=== PATIENT | female | born 1995 | race Hispanic/Latino ===

== ENCOUNTER 2018-02-10 09:27 | Inpatient (IN) | payer OTHER ==
[2018-02-10] MEDS ORDERED: LACTATED RINGERS 1000ML 1,000 ML IV PRN (09:59)
[2018-02-10 10:40] LABS: BASOPHILS % (AUTO) 0.6 % (0.0-5.0); EOSINOPHILS % (AUTO) 0.6 % (0.0-8.0); HEMATOCRIT 30.9 % (36-48); MEAN CORPUSCULAR HGB CONC 33.1 g/dL (32.0-36.0); MEAN CORPUSCULAR VOLUME 78.5 fL (79-99); MONOCYTES % (AUTO) 7.3 % (3.0-13.0); NEUTROPHILS % (AUTO) 62.5 % (40.0-77.0); NUCLEATED RED BLOOD CELLS 0.1 % (0.0-0.19); PLATELET COUNT (AUTO) 199 K/uL (130-400); RED BLOOD CELL COUNT(AUTO) 3.93 MIL/uL (4.00-5.50); RED CELL DISTRIBUTION WIDTH 17.5 % (11.0-15.5)
[2018-02-10 10:53] LABS: CREATININE 0.7 mg/dL (0.5-1.5); POTASSIUM 3.8 mmol/L (3.5-5.1)
[2018-02-10 10:55] LABS: INR 0.88 (0.85-1.15); PARTIAL THROMBOPLASTIN TIME 29.2 SEC (26.3-35.5); PROTHROMBIN TIME 9.3 SEC (9.6-11.6)
[2018-02-10 10:57] LABS: ALBUMIN 2.3 g/dL (3.5-5.0); BILIRUBIN,TOTAL 0.3 mg/dL (0.2-1.0); TOTAL PROTEIN, SERUM 6.4 g/dL (6.0-8.3); URIC ACID 5.4 mg/dL (2.6-7.2)
[2018-02-10 11:06] LABS: APPEARANCE,URINE CLEAR (CLEAR); BILIRUBIN,URINE NEGATIVE (NEGATIVE); COLOR,URINE YELLOW (YELLOW); GLUCOSE, URINE (UA) NEGATIVE (NEGATIVE); KETONES,URINE NEGATIVE (NEGATIVE); LEUKOCYTE ESTERASE ,URINE NEGATIVE (NEGATIVE); NITRATE,URINE NEGATIVE (NEGATIVE); OCCULT BLOOD,URINE SMALL (NEGATIVE); PH,URINE 7.5 (5.0-8.0); PROTEIN,URINE 100 (NEGATIVE); UROBILINOGEN,URINE 0.2 mg/dL (0.2-1.0)
[2018-02-10 11:12] LABS: BACTERIA,URINE Rare /HPF (None Seen); SQUAMOUS EPITHELIAL CELL,UR Moderate /HPF (0-2); WBC,URINE 0-1 /HPF (0-1)
[2018-02-11] MEDS ORDERED: OXYTOCIN 10 USP UNITS/ML 20 UNIT in LACTATED RINGERS 1000ML 1,000 ML IV SCH (06:00)
[2018-02-11] MEDS ORDERED: LACTATED RINGERS 1000ML 1,000 ML IV ONE (06:40)
[2018-02-11] MEDS ORDERED: OXYTOCIN 10 USP UNITS/ML ONE ×2 (07:14→17:27)
[2018-02-11] MEDS: AMPICILLIN 1GM+NS 50ML 50 ML IV SCH (08:15)
[2018-02-11] MEDS ORDERED: AMPICILLIN 2GM+NS 100ML 100 ML IV SCH (08:15)
[2018-02-11 08:25] LABS: HEPATITIS Bs ANTIGEN SCREEN P Negative (Negative)
[2018-02-11] MEDS ORDERED: CEFAZOLIN SODIUM 1 GM VIAL ONE (14:55)
[2018-02-11] MEDS ORDERED: CEFAZOLIN SODIUM 1 GM VIAL IVP PRN (15:00)
[2018-02-11] MEDS ORDERED: LACTATED RINGERS 1000ML 1,000 ML IV SCH (15:00)
[2018-02-11] MEDS ORDERED: SENSORCAINE/DEXT/PF 0.75% 2ML AMP IJ ONE (15:18)
[2018-02-11] MEDS ORDERED: DURAMORPH PF1 MG/ML 10ML AMP IV ONE (15:20)
[2018-02-11] MEDS ORDERED: FENTANYL CITRATE PF 50 MCG/1 ML 2ML VIAL ONE (15:21)
[2018-02-11] MEDS ORDERED: OXYTOCIN-LR 20 UNITS/1000 ML 1,000 ML IV PRN (16:34)
[2018-02-11] MEDS ORDERED: SODIUM CHLORIDE 0.9% 10 ML VIAL IVP PRN (16:45)
[2018-02-11] MEDS ORDERED: MEPERIDINE-PF 75 MG/ML SYG IM PRN (16:45)
[2018-02-11] MEDS ORDERED: PROMETHAZINE HCL 25 MG/ML 1ML AMPULE IM PRN ×2 (16:45→19:00)
[2018-02-11 17:47] VITALS: BP 140/71
[2018-02-11] MEDS ORDERED: ONDANSETRON HCL MDV 20ML 2 MG/ML VIAL ONE (18:49)
[2018-02-11] MEDS ORDERED: ONDANSETRON HCL 4 MG/2 ML VIAL IVP PRN (19:00)
[2018-02-11] MEDS ORDERED: HYDROCODONE/ACETAMINOPHEN 5/325 MG TAB PO PRN (19:00)
[2018-02-11] MEDS ORDERED: METOCLOPRAMIDE 10 MG/2 ML VIAL IVP PRN (19:00)
[2018-02-11] MEDS ORDERED: ONDANSETRON HCL MDV 20ML 2 MG/ML VIAL IVP PRN (19:00)
[2018-02-11] MEDS ORDERED: EPHEDRINE SULFATE 50 MG/ML AMPULE IVP PRN (19:00)
[2018-02-11] MEDS ORDERED: DiphenhydrAMINE HCL 50 MG/ML VIAL IVP PRN (19:00)
[2018-02-11] MEDS ORDERED: NALOXONE HCL 0.4 MG/1 ML ML IVP PRN (19:00)
[2018-02-11] MEDS ORDERED: MORPHINE SULFATE 2 MG/ML 1ML SYG IVP PRN (19:00)
[2018-02-11] MEDS ORDERED: ONDANSETRON HCL MDV 20ML 8 MG in SODIUM CHLORIDE 0.9% 50 ML IVP NR (19:00)
[2018-02-11 19:38] VITALS: BP 141/83
[2018-02-11] MEDS: HYDROCODONE/ACETAMINOPHEN 5/325 MG TAB PO PRN ×2 (20:11→20:17)
[2018-02-11] MEDS: DEXTROSE 5 %-0.45 % NACL 1,000 ML IV PRN (23:34)
[2018-02-11 23:40] VITALS: BP 129/64
[2018-02-12 04:03] VITALS: BP 128/67
[2018-02-12] MEDS: DEXTROSE 5 %-0.45 % NACL 1,000 ML IV PRN (05:34)
[2018-02-12 06:47] LABS: HEMATOCRIT 25.8 % (36-48); MEAN CORPUSCULAR HEMOGLOBIN 26.7 pg (27.0-33.0); MEAN CORPUSCULAR HGB CONC 34.2 g/dL (32.0-36.0); MEAN CORPUSCULAR VOLUME 77.9 fL (79-99); PLATELET COUNT (AUTO) 140 K/uL (130-400); RED BLOOD CELL COUNT(AUTO) 3.31 MIL/uL (4.00-5.50); RED CELL DISTRIBUTION WIDTH 17.4 % (11.0-15.5); WHITE BLOOD COUNT (AUTO) 9.9 K/uL (4.8-10.8)
[2018-02-12 07:20] VITALS: BP 136/76
[2018-02-12] MEDS: HYDROCODONE/ACETAMINOPHEN 5/325 MG TAB PO PRN (08:58)
[2018-02-12] MEDS ORDERED: DIPHENHYDRAMINE HCL 25 MG CAPSULE PO PRN (09:15)
[2018-02-12] MEDS ORDERED: ACETAMINOPHEN-CODEINE 300/30MG TAB PO PRN (09:15)
[2018-02-12 11:38] VITALS: BP 133/88
[2018-02-12] MEDS: IBUPROFEN 800 MG TAB PO SCH ×3 (12:16→19:35)
[2018-02-12 15:37] VITALS: BP 142/72
[2018-02-12] MEDS: AMPICILLIN 1GM+NS 50ML 50 ML IV SCH (16:15)
[2018-02-12 19:50] VITALS: BP 146/84
[2018-02-12] MEDS ORDERED: DIPH,PERTUSS(ACELL),TET VAC/PF 0.5 ML VIAL IM ONE (20:45)
[2018-02-12] MEDS: SIMETHICONE 80 MG TAB.CHEW PO PRN (21:18)
[2018-02-12] MEDS: DOCUSATE SODIUM 100 MG CAP PO SCH (21:18)
[2018-02-13 00:15] VITALS: BP 126/78
[2018-02-13] MEDS: IBUPROFEN 800 MG TAB PO SCH ×4 (00:45→11:14)
[2018-02-13 03:45] VITALS: BP 125/77
[2018-02-13] MEDS ORDERED: DIPH,PERTUSS(ACELL),TET VAC/PF 0.5 ML VIAL IM ONE (06:30)
[2018-02-13] MEDS ORDERED: DIPH,PERTUSS(ACELL),TET VAC/PF 0.5 ML VIAL IM SCH (06:30)
[2018-02-13 07:53] VITALS: BP 124/65
[2018-02-13] MEDS: SIMETHICONE 80 MG TAB.CHEW PO PRN (08:42)
[2018-02-13] MEDS: DOCUSATE SODIUM 100 MG CAP PO SCH (08:42)
[2018-02-13 11:40] VITALS: BP 140/78
== END 2018-02-13 13:15 | disposition home or self-care (01) | DRG 765 ==
LOC: LDH 09:27 → OBSVTOIN 17:10 → WSH 02-11 17:45
PROVIDERS: ADMIT Specialist; ATTEND Specialist
PROC: 10D00Z1 Extraction of Products of Conception, Low, Open Approach (ICD-10-PCS; principal; 2018-02-11 15:00)
PROC: 3E0234Z Introduction of Serum, Toxoid and Vaccine into Muscle, Percutaneous Approach (ICD-10-PCS; 2018-02-13)
DX: O14.94 Unspecified pre-eclampsia, complicating childbirth (principal); D62 Acute posthemorrhagic anemia; O30.003 Twin pregnancy, unspecified number of placenta and unspecified number of amniotic sacs, third trimester; Z37.2 Twins, both liveborn; O61.9 Failed induction of labor, unspecified; Z3A.36 36 weeks gestation of pregnancy; Z23 Encounter for immunization
CPT/HCPCS: 36415; 59510; 76810; 76815; 76819; 80053; 81001; 84550; 85025; 85027; 85384; 85610; 85730; 86592; 86850; 86900; 86901; 87340; 90715; A4344; A4606; G0378; J0690; J2274; J2550; J2590; J3010; J3490; J7120